=== PATIENT | female | born 1995 | race Two or more races ===

== ENCOUNTER 2023-03-22 21:37 | Outpatient (CLI) ==
[~2023-03-22] VITALS: Ht 157.5 cm; Wt 123.8 kg
[2023-03-22] MEDS ORDERED: SERT-141 PO (21:58)
[2023-03-22] MEDS ORDERED: PRENTAB9 PO (21:58)
[2023-03-22] MEDS ORDERED: HOME MED LIST COMPLETE! XX SCH (22:00)
[2023-03-22 22:07] VITALS: BP 132/84
[2023-03-22 22:23] VITALS: BP 148/85
[2023-03-22 22:38] VITALS: BP 152/83
[2023-03-22 22:53] VITALS: BP 157/92
[2023-03-22 23:17] LABS: TOTAL PROTEIN,RANDOM URINE 15.7 MG/DL (0.0-14.0)
[2023-03-22 23:22] LABS: CREATININE,RANDOM URINE 43.6 MG/DL
[2023-03-22 23:28] VITALS: BP 150/84
[2023-03-22 23:41] LABS: HEMATOCRIT 30.9 % (36.0-47.0); MEAN CORPUSCULAR HEMOGLOBIN 26.8 pg (27.0-33.0); MEAN CORPUSCULAR HGB CONC 32.4 g/dl (32.0-36.5); MEAN CORPUSCULAR VOLUME 82.8 fl (80.0-96.0); PLATELET COUNT, AUTOMATED 253 10^3/uL (150-450); RED BLOOD COUNT 3.73 10^6/uL (4.00-5.40); WHITE BLOOD COUNT 14.1 10^3/uL (4.0-10.0)
[2023-03-22 23:58] VITALS: BP 143/80
[2023-03-23 00:02] LABS: URIC ACID 4.5 MG/DL (3.1-7.8)
[2023-03-23 00:04] LABS: LDH LACTATE DEHYDROGENASE 171 U/L (120-246)
[2023-03-23 00:05] LABS: ALT/SGPT < 9 U/L (7.0-40); AST/SGOT < 8 U/L (<34); BILIRUBIN,TOTAL 0.2 MG/DL (0.3-1.2); CREATININE FOR GFR 0.58 MG/DL (0.55-1.30); GLOMERULAR FILTRATION RATE > 60.0 (>60)
== END 2023-03-23 01:03 ==
LOC: M LDO 21:37
PROVIDERS: ATTEND Advanced Practice Midwife
DX: O14.93 Unspecified pre-eclampsia, third trimester (principal); Z3A.36 36 weeks gestation of pregnancy
CPT/HCPCS: 36415; 59025; 76815; 82247; 82565; 82570; 83615; 84156; 84450; 84460; 84550; 85027; 87081; G0463

== ENCOUNTER 2023-03-24 14:47 | Inpatient (IN) | payer OTHER, MEDICAID ==
[2023-03-24] VITALS (27 sets, daily range): BP systolic 120–231; BP diastolic 66–119
[~2023-03-24] VITALS: Ht 157.5 cm; Wt 125.0 kg
[~2023-03-24 14:47] MED LIST: PRENTAB9 PO; SERT-141 PO
[2023-03-24] MEDS ORDERED: SERTRALINE HCL 50 MG TAB PO ONE (15:55)
[2023-03-24 16:24] LABS: HEMATOCRIT 30.4 % (36.0-47.0); HEMOGLOBIN 9.9 g/dl (12.0-15.5); MEAN CORPUSCULAR HEMOGLOBIN 27.2 pg (27.0-33.0); MEAN CORPUSCULAR HGB CONC 32.6 g/dl (32.0-36.5); MEAN CORPUSCULAR VOLUME 83.5 fl (80.0-96.0); PLATELET COUNT, AUTOMATED 235 10^3/uL (150-450); RED BLOOD COUNT 3.64 10^6/uL (4.00-5.40); WHITE BLOOD COUNT 12.9 10^3/uL (4.0-10.0)
[2023-03-24] MEDS: BETAMETHASONE SOLUSPAN 6MG/ML 5ML VIAL IM SCH (16:28)
[2023-03-24 16:45] LABS: TOTAL PROTEIN,RANDOM URINE 27.5 MG/DL (0.0-14.0)
[2023-03-24 16:48] LABS: URIC ACID 4.8 MG/DL (3.1-7.8)
[2023-03-24 16:49] LABS: LDH LACTATE DEHYDROGENASE 140 U/L (120-246)
[2023-03-24] MEDS ORDERED: NIFEdipine 10 MG CAP PO STA (16:49)
[2023-03-24 16:50] LABS: ALT/SGPT < 9 U/L (7.0-40); AST/SGOT < 8 U/L (<34); BILIRUBIN,TOTAL 0.2 MG/DL (0.3-1.2); GLOMERULAR FILTRATION RATE > 60.0 (>60)
[2023-03-24] MEDS ORDERED: PENICILLIN G POTASSIUM 5 MU IV 5 MU in D5W MINI-BAG PLUS 100 ML IV STA (16:52)
[2023-03-24] MEDS ORDERED: OXYTOCIN INJ 10UNITS/ML 1ML VIAL IM PRN (16:55)
[2023-03-24] MEDS ORDERED: CARBOPROST TROMETHAMINE 250 MCG/ML AMP IM PRN (16:55)
[2023-03-24] MEDS ORDERED: TRANEXAMIC ACID INJection 1,000 MG in NS 100 ML IV PRN (16:55)
[2023-03-24] MEDS ORDERED: LIDOCAINE 1% MDV 20ML VIAL INFIL PRN (16:55)
[2023-03-24] MEDS ORDERED: OXYTOCIN DRIP 30 UNITS in IV 1 EA IV PRN ×4 (16:55)
[2023-03-24] MEDS ORDERED: HOME MED LIST COMPLETE! XX SCH (17:30)
[2023-03-24] MEDS ORDERED: LABETALOL 100MG/20ML VIAL IV STA ×2 (19:19→20:00)
[2023-03-24] MEDS: miSOPROStol 50MCG 1/2 TABLET PO SCH ×2 (19:22→23:33)
[2023-03-24] MEDS ORDERED: MAG Sulf (L&D) 4 GM/100 ML 4 GM in IV 1 EA IV ONE (19:45)
[2023-03-24] MEDS: MAG Sulf (OBGYN) 20GM/500ML 20,000 MG in IV 1 EA IV SCH (20:41)
[2023-03-24] MEDS ORDERED: PEN G POT 3,000,000 UNIT/50 ML 3,000,000 UNIT in IV 1 EA IV SCH (20:55)
[2023-03-24] MEDS ORDERED: CALCIUM GLUCONATE 1,000 MG in D5W MINI-BAG PLUS 100 ML IV PRN (21:25)
[2023-03-24 22:42] LABS: APPEARANCE, URINE CLEAR (CLEAR); BACTERIA, URINE AUTO NEGATIVE (NEGATIVE); BILIRUBIN, URINE AUTO NEGATIVE (NEGATIVE); BLOOD, URINE BLOOD NEGATIVE (NEGATIVE); COLOR, URINE STRAW (YELLOW); GLUCOSE, URINE (UA) AUTO NEGATIVE (NEGATIVE); KETONE, URINE AUTO TRACE mg/dL (NEGATIVE); LEUKOCYTE ESTERASE, URINE AUTO NEGATIVE (NEGATIVE); MUCUS, URINE SMALL (NEGATIVE); NITRITE, URINE AUTO NEGATIVE (NEGATIVE); PROTEIN, URINE AUTO NEGATIVE (NEGATIVE); RBC, URINE AUTO 1 /HPF (0-3); SPECIFIC GRAVITY URINE AUTO 1.008 (1.002-1.035); SQUAMOUS EPITHELIAL CELL UR AU 1 /HPF (0-6); UROBILINOGEN, URINE AUTO 0.2 mg/dL (0.0-2.0); WBC, URINE AUTO 0 /HPF (0-3)
[2023-03-24] MEDS: LR 1,000 ML IV SCH (23:13)
[2023-03-25] VITALS (55 sets, daily range): BP systolic 118–224; BP diastolic 58–95; TEMP 97–97.8
[2023-03-25] MEDS ORDERED: LABETALOL 100MG/20ML VIAL IV STA ×3 (01:19→05:15)
[2023-03-25] MEDS: miSOPROStol 50MCG 1/2 TABLET PO SCH (03:55)
[2023-03-25] MEDS: LABETALOL 200 MG TAB PO SCH ×2 (05:30→18:05)
[2023-03-25] MEDS: MAG Sulf (OBGYN) 20GM/500ML 20,000 MG in IV 1 EA IV SCH ×2 (06:47→16:58)
[2023-03-25 07:29] LABS: HEMATOCRIT 31.1 % (36.0-47.0); MEAN CORPUSCULAR HEMOGLOBIN 26.8 pg (27.0-33.0); MEAN CORPUSCULAR HGB CONC 32.2 g/dl (32.0-36.5); MEAN CORPUSCULAR VOLUME 83.4 fl (80.0-96.0); PLATELET COUNT, AUTOMATED 254 10^3/uL (150-450); RED BLOOD COUNT 3.73 10^6/uL (4.00-5.40); WHITE BLOOD COUNT 14.6 10^3/uL (4.0-10.0)
[2023-03-25] MEDS ORDERED: LABETALOL 200 MG TAB PO SCH (09:00)
[2023-03-25] MEDS ORDERED: OXYTOCIN DRIP 30 UNITS in IV 1 EA IV SCH (10:00)
[2023-03-25] MEDS: LR 1,000 ML IV SCH ×2 (10:33→19:47)
[2023-03-25 10:53] LABS: ALBUMIN 2.7 G/DL (3.2-5.2); ALKALINE PHOSPHATASE 200 U/L (46-116); ALT/SGPT 10 U/L (7.0-40); AST/SGOT 9 U/L (<34); BILIRUBIN,TOTAL 0.3 MG/DL (0.3-1.2); BLOOD UREA NITROGEN 9 MG/DL (9-23); CALCIUM LEVEL 7.8 MG/DL (8.5-10.1); CARBON DIOXIDE LEVEL 16 MMOL/L (20-31); CHLORIDE LEVEL 107 MMOL/L (98-107); CREATININE FOR GFR 0.56 MG/DL (0.55-1.30); GLOMERULAR FILTRATION RATE > 60.0 (>60); GLUCOSE, FASTING 141 MG/DL (60-100); SODIUM LEVEL 137 MMOL/L (136-145); TOTAL PROTEIN 6.1 G/DL (5.7-8.2)
[2023-03-25] MEDS: BETAMETHASONE SOLUSPAN 6MG/ML 5ML VIAL IM SCH (16:37)
[2023-03-25 19:45] LABS: HEMATOCRIT 30.7 % (36.0-47.0); MEAN CORPUSCULAR HGB CONC 32.6 g/dl (32.0-36.5); MEAN CORPUSCULAR VOLUME 82.7 fl (80.0-96.0); PLATELET COUNT, AUTOMATED 194 10^3/uL (150-450); RED BLOOD COUNT 3.71 10^6/uL (4.00-5.40); WHITE BLOOD COUNT 16.5 10^3/uL (4.0-10.0)
[2023-03-25] MEDS ORDERED: diphenhydrAMINE 50MG/ML VIAL IV PRN (20:10)
[2023-03-25] MEDS ORDERED: ONDANSETRON 4MG 2ML VIAL IV PRN (20:10)
[2023-03-25] MEDS ORDERED: ePHEDrine SULFATE 25 MG/5 ML(5MG/ML) SYRINGE IVP PRN (20:10)
[2023-03-25] MEDS ORDERED: NALOXONE INJ 0.4MG/1ML VIAL IV PRN (20:10)
[2023-03-25] MEDS ORDERED: LR 500 ML IV PRN (20:10)
[2023-03-25] MEDS ORDERED: EPIDURAL/PCA KEYS XX PRN (20:10)
[2023-03-25] MEDS: FENTANYL/ROPIVACAINE/NACL BAG 100 ML EPIDURAL SCH (20:26)
[2023-03-26] VITALS (42 sets, daily range): BP systolic 80–219; BP diastolic 44–113; O2SAT 99–100
[2023-03-26] MEDS ORDERED: fentaNYL 100 MCG/2 ML INJECTION As Ordered ONE (02:20)
[2023-03-26] MEDS: MAG Sulf (OBGYN) 20GM/500ML 20,000 MG in IV 1 EA IV SCH (03:45)
[2023-03-26] MEDS ORDERED: LABETALOL 100MG/20ML VIAL IV STA ×2 (03:51→04:24)
[2023-03-26] MEDS: FENTANYL/ROPIVACAINE/NACL BAG 100 ML EPIDURAL SCH (05:18)
[2023-03-26] MEDS: LABETALOL 200 MG TAB PO SCH ×2 (05:35→17:14)
[2023-03-26] MEDS ORDERED: cefoTEtan DISODIUM 2 GM in D5W MINI-BAG PLUS 50 ML IV ONE (08:00)
[2023-03-26 08:25] LABS: HEMATOCRIT 23.9 % (36.0-47.0); MEAN CORPUSCULAR HEMOGLOBIN 27.1 pg (27.0-33.0); MEAN CORPUSCULAR HGB CONC 31.8 g/dl (32.0-36.5); MEAN CORPUSCULAR VOLUME 85.4 fl (80.0-96.0); WHITE BLOOD COUNT 23.2 10^3/uL (4.0-10.0)
[2023-03-26 08:31] LABS: HEMOGLOBIN 7.6 g/dl (12.0-15.5); PLATELET COUNT, AUTOMATED 303 10^3/uL (150-450)
[2023-03-26 08:35] LABS: INR 1.06; PARTIAL THROMBOPLASTIN TIME 24.2 SECONDS (24.8-34.2)
[2023-03-26] MEDS ORDERED: MOM 30ML SUSPENSION UDC PO PRN (08:55)
[2023-03-26] MEDS ORDERED: IBUPROFEN 800 MG TAB PO PRN (08:55)
[2023-03-26] MEDS ORDERED: ACETAMINOPHEN 500 MG TAB PO PRN (08:55)
[2023-03-26] MEDS ORDERED: ACETAMINOPHEN TAB 650MG DOSE (2X325MG) PO PRN (08:55)
[2023-03-26] MEDS ORDERED: LR 1,000 ML IV SCH (08:55)
[2023-03-26] MEDS ORDERED: DIBUCAINE 1% OINTMENT 30GM TOP PRN (08:55)
[2023-03-26] MEDS ORDERED: RHOGAM 300MCG (1500IU) INJ IM SCH (08:55)
[2023-03-26] MEDS: DOCUSATE SODIUM 100MG CAPSULE PO SCH ×2 (09:00→20:38)
[2023-03-26] MEDS: PRENATAL VITAMINS CHEWABLE TABLET PO SCH (09:00)
[2023-03-26 13:58] LABS: HEMATOCRIT 27.6 % (36.0-47.0); HEMOGLOBIN 8.8 g/dl (12.0-15.5); MEAN CORPUSCULAR HEMOGLOBIN 27.2 pg (27.0-33.0); MEAN CORPUSCULAR HGB CONC 31.9 g/dl (32.0-36.5); MEAN CORPUSCULAR VOLUME 85.2 fl (80.0-96.0); PLATELET COUNT, AUTOMATED 271 10^3/uL (150-450); RED BLOOD COUNT 3.24 10^6/uL (4.00-5.40); WHITE BLOOD COUNT 23.8 10^3/uL (4.0-10.0)
[2023-03-26 14:13] LABS: INR 1.07; PARTIAL THROMBOPLASTIN TIME 27.5 SECONDS (24.8-34.2); PROTHROMBIN TIME 14.1 SECONDS (12.5-14.5)
[2023-03-26] MEDS: IBUPROFEN 600MG TAB PO PRN (20:38)
[2023-03-26] MEDS: SERTRALINE HCL 50 MG TAB PO SCH (21:07)
[2023-03-27] VITALS (8 sets, daily range): BP systolic 126–176; BP diastolic 70–88; O2SAT 98–100
[2023-03-27] MEDS: LABETALOL 200 MG TAB PO SCH (06:37)
[2023-03-27 07:13] LABS: HEMATOCRIT 24.5 % (36.0-47.0); MEAN CORPUSCULAR HEMOGLOBIN 27.7 pg (27.0-33.0); MEAN CORPUSCULAR HGB CONC 32.7 g/dl (32.0-36.5); MEAN CORPUSCULAR VOLUME 84.8 fl (80.0-96.0); PLATELET COUNT, AUTOMATED 223 10^3/uL (150-450); RED BLOOD COUNT 2.89 10^6/uL (4.00-5.40); WHITE BLOOD COUNT 18.4 10^3/uL (4.0-10.0)
[2023-03-27] MEDS: IBUPROFEN 600MG TAB PO PRN ×2 (07:17→20:47)
[2023-03-27] MEDS: PRENATAL VITAMINS CHEWABLE TABLET PO SCH (09:18)
[2023-03-27] MEDS: DOCUSATE SODIUM 100MG CAPSULE PO SCH ×2 (09:18→20:46)
[2023-03-27] MEDS ORDERED: LABETALOL 100MG TAB PO STA (10:26)
[2023-03-27] MEDS: ENOXAPARIN 30MG/0.3ML SYRINGE (J1650 PER 10MG) SC SCH ×2 (10:54→20:46)
[2023-03-27] MEDS ORDERED: LABETALOL 100MG TAB PO SCH (18:00)
[2023-03-27] MEDS: SERTRALINE HCL 50 MG TAB PO SCH (20:46)
[2023-03-28] VITALS (9 sets, daily range): BP systolic 152–160; BP diastolic 70–78; O2SAT 98–99
[2023-03-28] MEDS ORDERED: LABETALOL 100MG TAB PO ONE (02:45)
[2023-03-28] MEDS ORDERED: LABETALOL 100MG TAB PO SCH (06:00)
[2023-03-28] MEDS: DOCUSATE SODIUM 100MG CAPSULE PO SCH ×2 (08:49→21:01)
[2023-03-28] MEDS: ENOXAPARIN 30MG/0.3ML SYRINGE (J1650 PER 10MG) SC SCH ×2 (08:49→21:07)
[2023-03-28] MEDS: PRENATAL VITAMINS CHEWABLE TABLET PO SCH (08:49)
[2023-03-28] MEDS: LABETALOL 100MG TAB PO SCH ×3 (08:56→21:06)
[2023-03-28] MEDS ORDERED: MEASLES,MUMPS,RUBELLA VACCINE INJ (MMR-II) SC.IMMUN ONE (09:00)
[2023-03-28] MEDS: NIFEdipine 30MG XL TAB PO SCH (14:04)
[2023-03-28] MEDS: SERTRALINE HCL 50 MG TAB PO SCH (21:01)
[2023-03-29 02:00] VITALS: BP 152/72
[2023-03-29 06:00] VITALS: BP 148/68
[2023-03-29] MEDS: ENOXAPARIN 30MG/0.3ML SYRINGE (J1650 PER 10MG) SC SCH (08:06)
[2023-03-29] MEDS: DOCUSATE SODIUM 100MG CAPSULE PO SCH (08:06)
[2023-03-29] MEDS: PRENATAL VITAMINS CHEWABLE TABLET PO SCH (08:06)
[2023-03-29] MEDS: NIFEdipine 30MG XL TAB PO SCH (08:12)
[2023-03-29 08:13] VITALS: BP 160/90
[2023-03-29] MEDS ORDERED: LABETALOL 200 MG TAB PO SCH (09:00)
[2023-03-29 09:17] VITALS: BP 140/72
[2023-03-29] MEDS ORDERED: COLA100C5 PO (10:40)
[2023-03-29] MEDS ORDERED: NIFE1TAB52 PO (10:40)
[2023-03-29] MEDS ORDERED: LABE20TAB PO (10:40)
== END 2023-03-29 13:40 | disposition home or self-care (01) | DRG 542 ==
LOC: M LDO 14:47 → M LDI 16:56 → M OBS 03-26 16:10
PROVIDERS: ADMIT Advanced Practice Midwife; ATTEND Advanced Practice Midwife
PROC: 10907ZC Drainage of Amniotic Fluid, Therapeutic from Products of Conception, Via Natural or Artificial Opening (ICD-10-PCS; 2023-03-25)
PROC: 10E0XZZ Delivery of Products of Conception, External Approach (ICD-10-PCS; principal; 2023-03-26)
PROC: 0DQR0ZZ Repair Anal Sphincter, Open Approach (ICD-10-PCS; 2023-03-26)
PROC: 30233N1 Transfusion of Nonautologous Red Blood Cells into Peripheral Vein, Percutaneous Approach (ICD-10-PCS; 2023-03-26)
DX: O14.14 Severe pre-eclampsia complicating childbirth (principal); O72.1 Other immediate postpartum hemorrhage; O70.20 Third degree perineal laceration during delivery, unspecified; E66.9 Obesity, unspecified; Z37.0 Single live birth; Z3A.36 36 weeks gestation of pregnancy; O99.214 Obesity complicating childbirth